=== PATIENT | female | born 2000 | race African-American/Black ===

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

== ENCOUNTER 2022-08-23 00:47 | Emergency (ER) | payer MEDICAID, OTHER ==
[~2022-08-23] VITALS: Ht 167.6 cm; Wt 64.0 kg
[2022-08-23 00:50] VITALS: O2SAT 100
[2022-08-23] MEDS ORDERED: SODIUM CHLORIDE 0.9% 1,000 ML IV ONE (01:15)
[2022-08-23 01:31] LABS: BASOPHILS % 0.4 % (0.0-2.0); EOSINOPHILS % 0.7 % (0.0-5.0); HEMATOCRIT. 37.9 % (36.0-48.0); HEMOGLOBIN. 12.8 g/dL (12.0-16.0); LYMPHOCYTES % 21.3 % (20.0-50.0); MEAN CORPUSCULAR HEMOGLOBIN 31.3 pg (28.0-32.0); MEAN CORPUSCULAR VOLUME 92.5 fL (81.0-99.0); MEAN PLATELET VOLUME 7.7 fl (7.4-10.4); MONOCYTES % 7.3 % (2.0-8.0); NEUTROPHILS % 70.3 % (40.0-76.0); PLATELET 377 x1000/uL (130-400); RED CELL DISTRIBUTION WIDTH 14.3 % (11.6-14.6)
[2022-08-23 01:38] LABS: CHLORIDE 112 mEq/L (98-107)
[2022-08-23 01:45] LABS: ETHANOL BLOOD 82 mg/dL (-10)
[2022-08-23 01:46] LABS: HCG SCREEN NEGATIVE
[2022-08-23] MEDS ORDERED: IOHEXOL-350 100 ML BOTTLE ONE (06:57)
[2022-08-23] MEDS ORDERED: ONDANSETRON 4MG ODT PO ONE ×2 (10:15→14:00)
[2022-08-24] MEDS ORDERED: ONDANSETRON 4MG ODT PO ONE (09:45)
[2022-08-24] MEDS ORDERED: ACETAMINOPHEN 325MG TABLET PO ONE (09:45)
[2022-08-24 10:31] LABS: CLARITY URINE CLOUDY (CLEAR); COLOR URINE DARK YELLOW (YELLOW); KETONES URINE 2+ (NEGATIVE); LEUKOCYTE ESTERASE URINE 2+ (NEGATIVE); NITRITE URINE NEGATIVE (NEGATIVE); OCCULT BLOOD URINE NEGATIVE (NEGATIVE); PROTEIN URINE TRACE (NEGATIVE); SPECIFIC GRAVITY URINE 1.031 (1.005-1.030)
[2022-08-24 10:54] LABS: *AMPHETAMINES SCREEN URINE NEGATIVE (NEGATIVE); *BARBITURATES SCREEN URINE NEGATIVE (NEGATIVE); *BENZODIAZEPINES SCREEN URINE NEGATIVE (NEGATIVE); METHADONE URINE SCREEN NEGATIVE (NEGATIVE); OPIATES URINE SCREEN NEGATIVE (NEGATIVE); PHENCYCLIDINE URINE SCREEN NEGATIVE (NEGATIVE)
[2022-08-24 10:59] LABS: *COCAINE SCREEN URINE PRESUMTIVE POSITIVE (NEGATIVE)
[2022-08-24 11:00] LABS: CANNABINOID URINE SCREEN PRESUMTIVE POSITIVE (NEGATIVE)
[2022-08-25 00:53] VITALS: BP 97/43; PULSE 68; RESP 16; TEMP 98.2
== END 2022-08-25 02:23 ==
LOC: ER 00:47
DX: T43.211A Poisoning by selective serotonin and norepinephrine reuptake inhibitors, accidental (unintentional), initial encounter (principal); I49.9 Cardiac arrhythmia, unspecified; Z20.822 Contact with and (suspected) exposure to COVID-19; Y92.9 Unspecified place or not applicable
CPT/HCPCS: 80053; 80305; 81003; 81025; 80307; 80329; 80320; 84703; 85025; 87086; 87077; 36415; 71045; 70498; 93005; 96360; 99291; 87426; Q9967; Q0162 ×2; J7030; C9803; G0480

== ENCOUNTER 2025-01-22 12:55 | Inpatient (IN) | payer MEDICAID, OTHER ==
[~2025-01-22] VITALS: Ht 152.4 cm; Wt 53.1 kg
[2025-01-22 13:29] LABS: BASOPHILS % 0.8 % (0.0-2.0); EOSINOPHILS % 1.0 % (0.0-5.0); HEMATOCRIT. 37.8 % (36.0-48.0); HEMOGLOBIN. 12.8 g/dL (12.0-16.0); LYMPHOCYTES % 21.2 % (20.0-50.0); MEAN PLATELET VOLUME 8.1 fl (7.4-10.4); MONOCYTES % 8.7 % (2.0-8.0); NEUTROPHILS % 68.3 % (40.0-76.0); PLATELET 402 x1000/uL (130-400); RED BLOOD CELL COUNT 4.19 mill/uL (4.2-5.4); RED CELL DISTRIBUTION WIDTH 13.6 % (11.6-14.6)
[2025-01-22] MEDS: SODIUM CHLORIDE 0.9% 1,000 ML IV ONE (13:36)
[2025-01-22] MEDS: LORAZEPAM 2MG/ML UD SYRINGE IV NR (13:36)
[2025-01-22 13:56] LABS: HCG SCREEN NEGATIVE
[2025-01-22] MEDS: ROCURONIUM BROMIDE 10MG/ML VIAL 5ML IV ONE (14:00)
[2025-01-22] MEDS: ETOMIDATE 2MG/ML 10ML VIAL IV ONE (14:00)
[2025-01-22] MEDS: PROPOFOL 10MG/ML 100ML 100 ML IV SCH (14:00)
[2025-01-22 14:04] LABS: CREATININE 1.1 mg/dL (0.6-1.0); UREA NITROGEN BLOOD 8 mg/dL (9-23)
[2025-01-22 14:06] LABS: ASPARTATE AMINOTRANSFERASE 24 IU/L (<34); BILIRUBIN DIRECT 0.2 mg/dL (<=3.0); BILIRUBIN TOTAL 0.7 mg/dL (0.1-1.0)
[2025-01-22 14:07] LABS: PROTEIN TOTAL 8.2 g/dL (6.0-8.3)
[2025-01-22 14:53] VITALS: O2SAT 100
[2025-01-22] MEDS: MIDAZOLAM HCL 2 MG/2 ML VIAL IV ONE (14:53)
[2025-01-22 18:00] VITALS: BP 140/129; PULSE 100; RESP 14; TEMP 37.4; O2SAT 99
[2025-01-22] MEDS: KETOROLAC 30MG/ML VIAL IV SCH (19:11)
[2025-01-22 20:00] VITALS: BP 135/98; PULSE 114; RESP 16; TEMP 36.4; TEMP 36.4736; O2SAT 100
[2025-01-23] VITALS (7 sets, daily range): BP systolic 98–121; BP diastolic 53–85; PULSE 72–93; RESP 15–28; TEMP 36.2–36.4; O2SAT 98–100
[2025-01-23] MEDS ORDERED: ONDANSETRON HCL 4MG/2ML INJ IV PRN (01:00)
[2025-01-23] MEDS ORDERED: ACETAMINOPHEN 325MG TABLET PO PRN ×2 (01:00)
[2025-01-23] MEDS ORDERED: IPRATROPIUM/ALBUTEROL 0.5-3(2.5)MG/3ML NEB HHN PRN (01:00)
[2025-01-23] MEDS: PANTOPRAZOLE SODIUM 40 MG/VIAL IV SCH (01:57)
[2025-01-23] MEDS: DEXT 5%/0.9% NACL 1,000 ML IV SCH (01:57)
[2025-01-23] MEDS: KCL 20MEQ/100ML PREMIX 100 ML IV NR (01:57)
[2025-01-23] MEDS: POTASSIUM CHLORIDE 20MEQ/PACKET PO NR (09:16)
[2025-01-23] MEDS: SERTRALINE HCL 100MG TABLET PO SCH (11:11)
[2025-01-23 11:53] LABS: CLARITY URINE CLOUDY (CLEAR); COLOR URINE DARK YELLOW (YELLOW); GLUCOSE URINE NEGATIVE (NEGATIVE); KETONES URINE 1+ (NEGATIVE); LEUKOCYTE ESTERASE URINE 2+ (NEGATIVE); NITRITE URINE NEGATIVE (NEGATIVE); OCCULT BLOOD URINE 3+ (NEGATIVE); PH URINE 5.5 (4.5-8.0); PROTEIN URINE 1+ (NEGATIVE); SPECIFIC GRAVITY URINE 1.029 (1.005-1.030); UROBILINOGEN URINE 1.0 E.U./dL (0.2-1.0)
[2025-01-23 12:12] LABS: *AMPHETAMINES SCREEN URINE NEGATIVE (NEGATIVE); *BARBITURATES SCREEN URINE NEGATIVE (NEGATIVE); *BENZODIAZEPINES SCREEN URINE PRESUMPTIVE POSITIVE (NEGATIVE); *COCAINE SCREEN URINE PRESUMPTIVE POSITIVE (NEGATIVE); CANNABINOID URINE SCREEN PRESUMPTIVE POSITIVE (NEGATIVE); ECSTASY MDMA SCREEN URINE NEGATIVE (NEGATIVE); METHADONE URINE SCREEN NEGATIVE (NEGATIVE); OPIATES URINE SCREEN NEGATIVE (NEGATIVE); PHENCYCLIDINE URINE SCREEN NEGATIVE (NEGATIVE)
[2025-01-23 12:28] LABS: MUCUS URINE 1+ /lpf (< = 2+); SQUAMOUS EPITHELIAL CELL URINE 3+ /lpf (RARE/1+)
[2025-01-23 12:29] LABS: BACTERIA URINE 2+; RBC URINE 15-25 /hpf (0-2)
[2025-01-23] MEDS ORDERED: GABAPENTIN 100MG CAPSULE PO SCH (14:00)
[2025-01-23] MEDS ORDERED: FAMOTIDINE 20MG TABLET PO SCH (21:00)
== END 2025-01-23 13:00 | disposition left against medical advice (07) | DRG 816 ==
LOC: ER 12:55 → 5EST 16:08 → EDBEDREQ 16:15 → EDBEDREQTM 16:15 → EDBEDREQSVC 16:15 → ENRESERV 17:56
PROVIDERS: ADMIT Hospitalist; ATTEND Hospitalist
DX: T65.6X1A Toxic effect of paints and dyes, not elsewhere classified, accidental (unintentional), initial encounter (principal); J96.01 Acute respiratory failure with hypoxia; N17.9 Acute kidney failure, unspecified; F32.9 Major depressive disorder, single episode, unspecified; F15.10 Other stimulant abuse, uncomplicated; E86.0 Dehydration; F14.90 Cocaine use, unspecified, uncomplicated; E87.6 Hypokalemia; D72.829 Elevated white blood cell count, unspecified; F41.1 Generalized anxiety disorder; Y92.89 Other specified places as the place of occurrence of the external cause; Z53.29 Procedure and treatment not carried out because of patient's decision for other reasons
CPT/HCPCS: 36415; 71045; 80048; 80076; 80305; 80307; 80329; 81003; 84703; 85025; 93005; 99291; J1885; J2060; J2250; J2470; J3480; J3490; J7030; J7042